=== PATIENT | female | born 1935 | race Asian ===

== ENCOUNTER 2017-12-26 14:51 | Inpatient (IN) | payer OTHER, MEDICAID ==
[2017-12-26 20:46] LABS: ADD MAN DIFF? NO
[2017-12-26 20:49] LABS: BASOPHIL # 0.1 10^3/ul (0.0-0.1); BASOPHILS % 0.8 % (0.0-2.0); EOSINOPHILS # 0.3 10^3/ul (0.0-0.5); HEMATOCRIT 37.1 % (37.0-47.0); HEMOGLOBIN 12.2 g/dl (12.0-16.0); LYMPHOCYTES # 3.9 10^3/ul (0.8-2.9); LYMPHOCYTES % 36.1 % (15.0-51.0); MEAN CORPUSCULAR HEMOGLOBIN 30.7 pg (29.0-33.0); MEAN CORPUSCULAR HGB CONC 32.9 g/dl (32.0-37.0); MEAN CORPUSCULAR VOLUME 93.2 fl (82.0-101.0); MEAN PLATELET VOLUME 12.1 fl (7.4-10.4); MONOCYTE # 1.4 10^3/ul (0.3-0.9); NEUTROPHILS % 46.6 % (39.0-77.0); PLATELET COUNT 152 10^3/UL (140-415); RED BLOOD COUNT 3.98 10^6/ul (4.20-5.40); RED CELL DISTRIBUTION WIDTH 13.1 % (11.5-14.5)
[2017-12-26 20:49] LABS: WHITE BLOOD COUNT 10.8 10^3/ul (4.8-10.8)
[2017-12-26 21:06] LABS: ANION GAP 14 (8-16); BLOOD UREA NITROGEN 17 mg/dl (7-20); CALCIUM 9.3 mg/dl (8.4-10.2); CARBON DIOXIDE 27 mmol/L (21-31); CHLORIDE 105 mmol/L (97-110); CREATININE 0.95 mg/dl (0.44-1.00); GLUCOSE 141 mg/dl (70-220); POTASSIUM 4.6 mmol/L (3.5-5.1); SODIUM 141 mmol/L (135-144)
[2017-12-26 21:09] LABS: URINE BLOOD (Dip) POC Trace-intact (NEGATIVE); URINE GLUCOSE (Dip) POC Negative (NEGATIVE); URINE KETONES (Dip) POC Negative (NEGATIVE); URINE LEUKOCYTE EST (Dip) POC Negative (NEGATIVE); URINE NITRITE (Dip) POC Negative (NEGATIVE); URINE TOTAL PROTEIN POC 1+ (NEGATIVE)
[2017-12-26 21:09] LABS: URINE PH (Dip) POC 5.5 (5.0-8.5)
[2017-12-26 21:18] LABS: B-TYPE NATRIURETIC PEPTIDE 820 PG/ML (0-450)
[2017-12-26 21:28] LABS: TROPONIN-I < 0.012 ng/ml (0.00-0.12)
[2017-12-26] MEDS: ASPIRIN 81 MG TAB PO (23:15)
[2017-12-26] MEDS: SOD CHLORIDE 0.9% 1,000 ML IV (23:56)
[2017-12-27] MEDS ORDERED: DOCUSATE SODIUM 100 MG CAP PO ×2
[2017-12-27] MEDS ORDERED: NACL 0.9% 3 ML SYG IV
[2017-12-27] MEDS ORDERED: ONDANSETRON 4 MG INJ IV
[2017-12-27] MEDS ORDERED: ONDANSETRON 4 MG TAB PO
[2017-12-27] MEDS ORDERED: morphine 2 MG INJ IV
[2017-12-27] MEDS ORDERED: ALENDRONATE SODIUM 70 MG XX
[2017-12-27] MEDS ORDERED: MECLIZINE 25 MG TAB PO
[2017-12-27] MEDS ORDERED: BISACODYL (EC) 5 MG TAB PO
[2017-12-27] MEDS ORDERED: NITROGLYCERIN (SL) 0.4 MG TAB SL
[2017-12-27] MEDS: KETOROLAC 15 MG INJ IV (04:14)
[2017-12-27 06:35] LABS: ADD MAN DIFF? NO
[2017-12-27 06:38] LABS: WHITE BLOOD COUNT 7.5 10^3/ul (4.8-10.8)
[2017-12-27 06:38] LABS: BASOPHIL # 0.1 10^3/ul (0.0-0.1); BASOPHILS % 0.9 % (0.0-2.0); EOSINOPHILS # 0.3 10^3/ul (0.0-0.5); HEMATOCRIT 34.9 % (37.0-47.0); HEMOGLOBIN 11.8 g/dl (12.0-16.0); LYMPHOCYTES # 2.8 10^3/ul (0.8-2.9); LYMPHOCYTES % 37.3 % (15.0-51.0); MEAN CORPUSCULAR HEMOGLOBIN 31.5 pg (29.0-33.0); MEAN CORPUSCULAR HGB CONC 33.8 g/dl (32.0-37.0); MEAN CORPUSCULAR VOLUME 93.1 fl (82.0-101.0); MEAN PLATELET VOLUME 12.5 fl (7.4-10.4); MONOCYTE # 1.1 10^3/ul (0.3-0.9); MONOCYTES % 14.9 % (0.0-11.0); NEUTROPHIL # 3.2 10^3/ul (1.6-7.5); NEUTROPHILS % 42.6 % (39.0-77.0); PLATELET COUNT 132 10^3/UL (140-415); RED BLOOD COUNT 3.75 10^6/ul (4.20-5.40); RED CELL DISTRIBUTION WIDTH 13.2 % (11.5-14.5)
[2017-12-27 07:04] LABS: HEMOGLOBIN A1C 6.2 % (0-5.9)
[2017-12-27 07:05] LABS: ALANINE AMINOTRANSFERASE 40 IU/L (13-69); ALBUMIN 3.1 g/dl (3.3-4.9); ALBUMIN/GLOBULIN RATIO 1.29; ALKALINE PHOSPHATASE 59 IU/L (42-121); ANION GAP 13 (8-16); ASPARTATE AMINO TRANSFERASE 27 IU/L (15-46); BILIRUBIN,INDIRECT 0.6 mg/dl (0-1.1); BILIRUBIN,TOTAL 0.6 mg/dl (0.2-1.3); BLOOD UREA NITROGEN 14 mg/dl (7-20); CALCIUM 9.3 mg/dl (8.4-10.2); CARBON DIOXIDE 27 mmol/L (21-31); CHLORIDE 107 mmol/L (97-110); CHOL/HDL RATIO 2.3 RATIO; CHOLESTEROL 104 mg/dl (100-200); GLUCOSE 114 mg/dl (70-220); HDL CHOLESTEROL 45 mg/dl (33-92); LDL CHOLESTEROL,CALCULATED 38 mg/dl; POTASSIUM 4.3 mmol/L (3.5-5.1); SODIUM 143 mmol/L (135-144); TOTAL PROTEIN 5.5 g/dl (6.1-8.1); TRIGLYCERIDES 103 mg/dl (0-149)
[2017-12-27 07:06] LABS: CREATINE KINASE 57 IU/L (23-200)
[2017-12-27 07:09] LABS: CK INDEX 1.6; CK-MB 0.94 ng/ml (0.0-2.4)
[2017-12-27 07:12] LABS: TROPONIN-I < 0.012 ng/ml (0.00-0.12)
[2017-12-27] MEDS: ASPIRIN (EC) 81 MG TAB PO (08:26)
[2017-12-27] MEDS: PROPRANOLOL 10 MG TAB PO ×3 (08:26→20:04)
[2017-12-27] MEDS: BENAZEPRIL 20 MG TAB PO (08:27)
[2017-12-27] MEDS: FAMOTIDINE 20 MG TAB PO (08:30)
[2017-12-27 13:10] LABS: CREATINE KINASE 61 IU/L (23-200)
[2017-12-27 13:15] LABS: CK INDEX 1.6
[2017-12-27 13:21] LABS: CK-MB 0.95 ng/ml (0.0-2.4); TROPONIN-I < 0.012 ng/ml (0.00-0.12)
[2017-12-27] MEDS ORDERED: GLUCOSE GEL 15 GRAM TUBE BUCCAL (13:30)
[2017-12-27] MEDS ORDERED: GLUCOSE GEL 15 GRAM TUBE PO ×2 (13:30)
[2017-12-27] MEDS ORDERED: DEXTROSE 50% 50 ML SYRINGE IV ×2 (13:30)
[2017-12-27] MEDS ORDERED: GLUCAGON 1 MG INJ IM (13:30)
[2017-12-27] MEDS: INSULIN ASPART [NOVOLOG] 3 ML PEN SC ×2 (19:17→20:21)
[2017-12-27] MEDS: ATORVASTATIN 40 MG TAB PO (20:03)
[2017-12-27] MEDS: SOD CHLORIDE 0.9% 1,000 ML IV (20:04)
[2017-12-28] MEDS: ACCU-CHEK XX (02:00)
[2017-12-28] MEDS: SOD CHLORIDE 0.9% 1,000 ML IV (05:37)
[2017-12-28] MEDS: INSULIN ASPART [NOVOLOG] 3 ML PEN SC ×4 (07:55→20:36)
[2017-12-28] MEDS: ASPIRIN (EC) 81 MG TAB PO (08:31)
[2017-12-28] MEDS: BENAZEPRIL 20 MG TAB PO (08:32)
[2017-12-28] MEDS: PROPRANOLOL 10 MG TAB PO ×3 (08:33→20:18)
[2017-12-28] MEDS: FAMOTIDINE 20 MG TAB PO (08:33)
[2017-12-28] MEDS: FUROSEMIDE 20 MG INJ IV (12:27)
[2017-12-28] MEDS: ACETAMINOPHEN 325 MG TAB PO ×2 (12:30→20:31)
[2017-12-28] MEDS ORDERED: MENTHOL/METH SALICYLATE 30 GM OINT TOP (13:00)
[2017-12-28] MEDS: ATORVASTATIN 40 MG TAB PO (20:15)
[2017-12-29] MEDS: ACCU-CHEK XX (02:35)
[2017-12-29] MEDS: INSULIN ASPART [NOVOLOG] 3 ML PEN SC ×4 (07:55→20:24)
[2017-12-29] MEDS: ACETAMINOPHEN 325 MG TAB PO (07:57)
[2017-12-29] MEDS: PROPRANOLOL 10 MG TAB PO (09:00)
[2017-12-29] MEDS: FAMOTIDINE 20 MG TAB PO (09:23)
[2017-12-29] MEDS: BENAZEPRIL 20 MG TAB PO (09:23)
[2017-12-29] MEDS: FUROSEMIDE 20 MG INJ IV ×2 (09:23→17:52)
[2017-12-29] MEDS: MENTHOL/METH SALICYLATE 30 GM OINT TOP ×3 (12:25→20:27)
[2017-12-29] MEDS: metFORMIN 500 MG TAB PO ×2 (12:25→20:23)
[2017-12-29] MEDS: GABAPENTIN 100 MG CAP PO ×2 (12:26→20:23)
[2017-12-29 12:34] LABS: ALBUMIN 3.3 g/dl (3.3-4.9); ANION GAP 13 (8-16); BLOOD UREA NITROGEN 12 mg/dl (7-20); CALCIUM 8.8 mg/dl (8.4-10.2); CARBON DIOXIDE 32 mmol/L (21-31); CHLORIDE 107 mmol/L (97-110); CREATININE 0.78 mg/dl (0.44-1.00); GLUCOSE 190 mg/dl (70-220); PHOSPHORUS 3.4 mg/dl (2.5-4.9); POTASSIUM 4.7 mmol/L (3.5-5.1); SODIUM 147 mmol/L (135-144)
[2017-12-29] MEDS ORDERED: PROPRANOLOL 10 MG TAB PO (13:00)
[2017-12-29] MEDS: OLOPATADINE 0.1% 5 ML OPH BOTH EYES ×2 (13:49→20:29)
[2017-12-29] MEDS: ALBUTEROL 0.083% (NEB) 2.5 MG/3 ML AMP HHN ×2 (14:06→20:45)
[2017-12-29] MEDS: ATORVASTATIN 40 MG TAB PO (20:23)
[2017-12-29] MEDS: METOPROLOL 25 MG TAB PO (20:23)
[2017-12-30] MEDS: ACCU-CHEK XX (02:00)
[2017-12-30] MEDS: FUROSEMIDE 20 MG INJ IV ×2 (05:21→18:07)
[2017-12-30] MEDS: INSULIN ASPART [NOVOLOG] 3 ML PEN SC (07:55)
[2017-12-30] MEDS: ALBUTEROL 0.083% (NEB) 2.5 MG/3 ML AMP HHN ×3 (08:09→20:23)
[2017-12-30] MEDS: BENAZEPRIL 20 MG TAB PO (09:00)
[2017-12-30] MEDS: METOPROLOL 25 MG TAB PO ×2 (09:00→21:00)
[2017-12-30] MEDS: GABAPENTIN 100 MG CAP PO ×2 (09:39→20:45)
[2017-12-30] MEDS: FAMOTIDINE 20 MG TAB PO (09:39)
[2017-12-30] MEDS: OLOPATADINE 0.1% 5 ML OPH BOTH EYES ×2 (09:39→20:44)
[2017-12-30] MEDS: metFORMIN 500 MG TAB PO ×2 (09:40→20:45)
[2017-12-30] MEDS: MENTHOL/METH SALICYLATE 30 GM OINT TOP ×3 (09:40→20:45)
[2017-12-30] MEDS: ATORVASTATIN 40 MG TAB PO (20:44)
[2017-12-31] MEDS: METOPROLOL 25 MG TAB PO ×2 (01:44→08:27)
[2017-12-31] MEDS: FUROSEMIDE 20 MG INJ IV (05:41)
[2017-12-31] MEDS: ALBUTEROL 0.083% (NEB) 2.5 MG/3 ML AMP HHN ×3 (07:25→19:48)
[2017-12-31] MEDS: metFORMIN 500 MG TAB PO ×2 (08:26→20:20)
[2017-12-31] MEDS: BENAZEPRIL 20 MG TAB PO (08:28)
[2017-12-31] MEDS: FAMOTIDINE 20 MG TAB PO (08:29)
[2017-12-31] MEDS: MENTHOL/METH SALICYLATE 30 GM OINT TOP ×3 (08:30→20:20)
[2017-12-31] MEDS: OLOPATADINE 0.1% 5 ML OPH BOTH EYES ×2 (08:30→20:20)
[2017-12-31] MEDS ORDERED: FAMOTIDINE 20 MG TAB PO (10:30)
[2018-01-01 06:50] LABS: ANION GAP 12 (8-16); BLOOD UREA NITROGEN 19 mg/dl (7-20); CARBON DIOXIDE 30 mmol/L (21-31); CHLORIDE 100 mmol/L (97-110); CREATININE 0.85 mg/dl (0.44-1.00); GLUCOSE 115 mg/dl (70-220); MAGNESIUM 1.4 mg/dl (1.7-2.5); PHOSPHORUS 2.9 mg/dl (2.5-4.9); POTASSIUM 3.9 mmol/L (3.5-5.1); SODIUM 138 mmol/L (135-144)
[2018-01-01] MEDS: ALBUTEROL 0.083% (NEB) 2.5 MG/3 ML AMP HHN ×3 (07:53→20:32)
[2018-01-01] MEDS: metFORMIN 500 MG TAB PO ×2 (08:42→21:30)
[2018-01-01] MEDS: FAMOTIDINE 20 MG TAB PO (08:42)
[2018-01-01] MEDS: OLOPATADINE 0.1% 5 ML OPH BOTH EYES ×2 (08:43→21:30)
[2018-01-01] MEDS: MENTHOL/METH SALICYLATE 30 GM OINT TOP ×3 (08:43→21:31)
[2018-01-01] MEDS: BENAZEPRIL 20 MG TAB PO (09:42)
[2018-01-01] MEDS: FUROSEMIDE 40 MG TAB PO (09:42)
[2018-01-01] MEDS: ACETAMINOPHEN 325 MG TAB PO (09:59)
[2018-01-01] MEDS: MAGNESIUM OXIDE 400 MG TAB PO ×2 (10:14→13:16)
[2018-01-01] MEDS: MAGNESIUM SULFATE 4 GM/100 ML 100 ML IVPB (11:07)
[2018-01-02 07:01] LABS: ALBUMIN 3.7 g/dl (3.3-4.9); ANION GAP 14 (8-16); BLOOD UREA NITROGEN 13 mg/dl (7-20); CALCIUM 8.3 mg/dl (8.4-10.2); CARBON DIOXIDE 30 mmol/L (21-31); CHLORIDE 95 mmol/L (97-110); CREATININE 0.84 mg/dl (0.44-1.00); GLUCOSE 117 mg/dl (70-220); MAGNESIUM 1.4 mg/dl (1.7-2.5); PHOSPHORUS 2.8 mg/dl (2.5-4.9); POTASSIUM 4.3 mmol/L (3.5-5.1); SODIUM 135 mmol/L (135-144)
[2018-01-02] MEDS: ALBUTEROL 0.083% (NEB) 2.5 MG/3 ML AMP HHN ×3 (08:06→20:00)
[2018-01-02] MEDS: FAMOTIDINE 20 MG TAB PO (09:18)
[2018-01-02] MEDS: FUROSEMIDE 40 MG TAB PO (09:18)
[2018-01-02] MEDS: BENAZEPRIL 20 MG TAB PO (09:18)
[2018-01-02] MEDS: metFORMIN 500 MG TAB PO ×2 (09:19→22:29)
[2018-01-02] MEDS: OLOPATADINE 0.1% 5 ML OPH BOTH EYES ×2 (09:19→22:28)
[2018-01-02] MEDS: MENTHOL/METH SALICYLATE 30 GM OINT TOP ×3 (09:20→22:30)
[2018-01-02] MEDS: ACETAMINOPHEN 325 MG TAB PO (09:22)
[2018-01-02] MEDS: MAGNESIUM SULFATE 4 GM/100 ML 100 ML IVPB (14:20)
[2018-01-02] MEDS ORDERED: SODIUM CL BACTERIOSTATIC 30 ML INJ (18:30)
[2018-01-02] MEDS: POLYMYXIN/BACITRACIN 1L IRRIG (19:33)
[2018-01-02] MEDS: LIDOCAINE 1% (MPF) 30 ML INJ (19:34)
[2018-01-02] MEDS: MINERAL OIL LIGHT 10 ML VIAL (19:34)
[2018-01-02] MEDS ORDERED: FENTAnyl 50 MCG/ML VIAL IV ×2 (20:30)
[2018-01-02] MEDS ORDERED: ONDANSETRON 4 MG INJ IV (20:30)
[2018-01-02] MEDS ORDERED: DIPHENHYDRAMINE 50 MG INJ IV (20:30)
[2018-01-02] MEDS ORDERED: LABETALOL HCL 20MG INJ IV (20:30)
[2018-01-02] MEDS ORDERED: HYDROmorphONE (0.2 MG/ML) 10ML SYG IV (20:30)
[2018-01-02] MEDS ORDERED: EPHEDrine SULFATE 50 MG/5 ML SYG IV (20:30)
[2018-01-02] MEDS ORDERED: hydrALAzine 20 MG INJ IV (20:30)
[2018-01-02] MEDS ORDERED: FENTAnyl 50 MCG/ML VIAL (20:51)
[2018-01-02] MEDS: IOHEXOL 300MG/ML 30 ML BTL (20:57)
[2018-01-02] MEDS ORDERED: METOCLOPRAMIDE 10 MG INJ (21:04)
[2018-01-02] MEDS ORDERED: ONDANSETRON 4 MG INJ (21:04)
[2018-01-02] MEDS ORDERED: CEFAZOLIN 1 GM INJ (21:04)
[2018-01-02] MEDS ORDERED: PROPOFOL 20 ML (21:04)
[2018-01-02] MEDS ORDERED: DEXAMETHASONE 4 MG/ML 1 ML INJ (21:04)
[2018-01-02] MEDS: CEFAZOLIN 1 GM/50 ML (PMX) 50 ML IVPB (22:00)
[2018-01-03] MEDS: CEFAZOLIN 1 GM/50 ML (PMX) 50 ML IVPB ×2 (05:09→13:51)
[2018-01-03] MEDS: ALBUTEROL 0.083% (NEB) 2.5 MG/3 ML AMP HHN ×3 (08:43→19:45)
[2018-01-03] MEDS: metFORMIN 500 MG TAB PO ×2 (09:05→20:44)
[2018-01-03] MEDS: FAMOTIDINE 20 MG TAB PO (09:05)
[2018-01-03] MEDS: OLOPATADINE 0.1% 5 ML OPH BOTH EYES ×2 (09:06→20:45)
[2018-01-03] MEDS: FUROSEMIDE 40 MG TAB PO (09:06)
[2018-01-03] MEDS: MENTHOL/METH SALICYLATE 30 GM OINT TOP ×3 (09:06→20:45)
[2018-01-03] MEDS: BENAZEPRIL 20 MG TAB PO (09:06)
[2018-01-03] MEDS: ALENDRONATE 70 MG TAB PO (09:06)
[2018-01-03 09:07] LABS: ALBUMIN 3.8 g/dl (3.3-4.9); ANION GAP 13 (8-16); BLOOD UREA NITROGEN 20 mg/dl (7-20); CALCIUM 8.3 mg/dl (8.4-10.2); CARBON DIOXIDE 31 mmol/L (21-31); CHLORIDE 95 mmol/L (97-110); GLUCOSE 166 mg/dl (70-220); PHOSPHORUS 3.3 mg/dl (2.5-4.9); POTASSIUM 4.8 mmol/L (3.5-5.1); SODIUM 134 mmol/L (135-144)
[2018-01-03] MEDS: APIXABAN 5 MG TABLET PO (20:43)
[2018-01-03] MEDS: METOPROLOL 25 MG TAB PO (20:44)
[2018-01-04] MEDS: ALBUTEROL/IPRATROPIUM (NEB) 3 ML AMP HHN (06:22)
[2018-01-04] MEDS: ACETAMINOPHEN 325 MG TAB PO (06:33)
[2018-01-04] MEDS: ALBUTEROL 0.083% (NEB) 2.5 MG/3 ML AMP HHN ×2 (07:47→13:10)
[2018-01-04] MEDS: OLOPATADINE 0.1% 5 ML OPH BOTH EYES (09:06)
[2018-01-04] MEDS: FUROSEMIDE 40 MG TAB PO (09:06)
[2018-01-04] MEDS: APIXABAN 5 MG TABLET PO (09:06)
[2018-01-04] MEDS: metFORMIN 500 MG TAB PO (09:06)
[2018-01-04] MEDS: FAMOTIDINE 20 MG TAB PO (09:06)
[2018-01-04] MEDS: BENAZEPRIL 20 MG TAB PO (09:07)
[2018-01-04] MEDS: MENTHOL/METH SALICYLATE 30 GM OINT TOP ×2 (09:08→13:00)
[2018-01-04] MEDS: METOPROLOL 25 MG TAB PO (09:08)
== END 2018-01-04 16:50 | disposition home health service (06) | DRG 244 ==
LOC: TEL 23:21 → E/R 14:51 → TEL 12-27 17:48
PROC: 0JH606Z Insertion of Pacemaker, Dual Chamber into Chest Subcutaneous Tissue and Fascia, Open Approach (ICD-10-PCS; principal; 2018-01-02 20:00)
PROC: 02H63JZ Insertion of Pacemaker Lead into Right Atrium, Percutaneous Approach (ICD-10-PCS; 2018-01-02 20:00)
PROC: 02HK3JZ Insertion of Pacemaker Lead into Right Ventricle, Percutaneous Approach (ICD-10-PCS; 2018-01-02 20:00)
DX: I11.0 Hypertensive heart disease with heart failure (principal); I50.33 Acute on chronic diastolic (congestive) heart failure; I49.5 Sick sinus syndrome; I48.0 Paroxysmal atrial fibrillation; E83.42 Hypomagnesemia; F41.9 Anxiety disorder, unspecified; E11.9 Type 2 diabetes mellitus without complications; R07.89 Other chest pain; M81.0 Age-related osteoporosis without current pathological fracture; M54.5 Low back pain; R42 Dizziness and giddiness; E78.5 Hyperlipidemia, unspecified; Z79.4 Long term (current) use of insulin
CPT/HCPCS: 36415; 71045; 80048; 80053; 80061; 80069; 81003; 82550; 82553; 82962; 83036; 83735; 83880; 84443; 84484; 85025; 93005; 93306; 94640; 94664; 97161; 97165; 99285-25

== ENCOUNTER 2018-04-10 11:56 | Observation (INO) | payer MEDICARE, OTHER, MEDICAID ==
[2018-04-10 12:56] LABS: ADD MAN DIFF? NO
[2018-04-10 12:59] LABS: WHITE BLOOD COUNT 6.8 10^3/ul (4.8-10.8)
[2018-04-10 12:59] LABS: BASOPHIL # 0.1 10^3/ul (0.0-0.1); EOSINOPHILS # 0.2 10^3/ul (0.0-0.5); EOSINOPHILS % 2.9 % (0.0-7.0); HEMATOCRIT 34.7 % (37.0-47.0); HEMOGLOBIN 11.7 g/dl (12.0-16.0); LYMPHOCYTES # 2.3 10^3/ul (0.8-2.9); LYMPHOCYTES % 33.8 % (15.0-51.0); MEAN CORPUSCULAR HEMOGLOBIN 31.3 pg (29.0-33.0); MEAN CORPUSCULAR HGB CONC 33.7 g/dl (32.0-37.0); MEAN CORPUSCULAR VOLUME 92.8 fl (82.0-101.0); MEAN PLATELET VOLUME 12.2 fl (7.4-10.4); MONOCYTES % 14.9 % (0.0-11.0); NEUTROPHIL # 3.2 10^3/ul (1.6-7.5); NEUTROPHILS % 47.3 % (39.0-77.0); PLATELET COUNT 170 10^3/UL (140-415); RED BLOOD COUNT 3.74 10^6/ul (4.20-5.40); RED CELL DISTRIBUTION WIDTH 13.2 % (11.5-14.5)
[2018-04-10 13:17] LABS: MAGNESIUM 1.7 mg/dl (1.7-2.5)
[2018-04-10 13:27] LABS: B-TYPE NATRIURETIC PEPTIDE 275 PG/ML (0-450)
[2018-04-10 13:54] LABS: ANION GAP 14 (8-16); BLOOD UREA NITROGEN 16 mg/dl (7-20); CALCIUM 9.1 mg/dl (8.4-10.2); CARBON DIOXIDE 28 mmol/L (21-31); CHLORIDE 103 mmol/L (97-110); GLUCOSE 169 mg/dl (70-220); POTASSIUM 3.8 mmol/L (3.5-5.1); SODIUM 141 mmol/L (135-144)
[2018-04-10] MEDS: NITROGLYCERIN 2% 1 GM OINT PKT TD (14:03)
[2018-04-10 14:06] LABS: TROPONIN-I < 0.010 ng/ml (0.000-0.120)
[2018-04-10] MEDS: ASPIRIN 81 MG TAB PO (14:07)
[2018-04-10] MEDS ORDERED: ONDANSETRON 4 MG INJ IV (17:00)
[2018-04-10] MEDS ORDERED: DOCUSATE SODIUM 100 MG CAP PO (17:00)
[2018-04-10] MEDS ORDERED: NACL 0.9% 3 ML SYG IV (17:00)
[2018-04-10] MEDS ORDERED: HYDROCODONE/APAP (5/325) TAB PO (17:00)
[2018-04-10] MEDS ORDERED: NITROGLYCERIN (SL) 0.4 MG TAB SL (17:00)
[2018-04-10] MEDS ORDERED: ZOLPIDEM 5 MG TAB PO (17:00)
[2018-04-10] MEDS ORDERED: morphine 2 MG INJ IV (17:00)
[2018-04-10] MEDS ORDERED: MAGNESIUM HYDROXIDE 30ML CUP PO (17:00)
[2018-04-10] MEDS ORDERED: GLUCOSE GEL 15 GRAM TUBE PO ×2 (17:30)
[2018-04-10] MEDS ORDERED: GLUCOSE GEL 15 GRAM TUBE BUCCAL (17:30)
[2018-04-10] MEDS ORDERED: DEXTROSE 50% 50 ML SYRINGE IV ×2 (17:30)
[2018-04-10] MEDS ORDERED: GLUCAGON 1 MG INJ IM (17:30)
[2018-04-10] MEDS: LINAGLIPTIN 5 MG TABLET PO (17:30)
[2018-04-10 18:17] LABS: CREATINE KINASE 108 IU/L (23-200)
[2018-04-10 18:30] LABS: CK INDEX 0.7; CK-MB 0.74 ng/ml (0.0-2.4); TROPONIN-I < 0.010 ng/ml (0.000-0.120)
[2018-04-10] MEDS: METOPROLOL (XL) 25 MG TAB PO (20:49)
[2018-04-10] MEDS: FUROSEMIDE 40 MG TAB PO (20:49)
[2018-04-10] MEDS: ATORVASTATIN 40 MG TAB PO (20:49)
[2018-04-10] MEDS: OLOPATADINE 0.1% 5 ML OPH BOTH EYES (21:00)
[2018-04-11 01:27] LABS: CREATINE KINASE 92 IU/L (23-200)
[2018-04-11 01:41] LABS: CK INDEX 0.7; CK-MB 0.61 ng/ml (0.0-2.4); TROPONIN-I < 0.010 ng/ml (0.000-0.120)
[2018-04-11] MEDS: ACETAMINOPHEN 325 MG TAB PO (06:43)
[2018-04-11 07:44] LABS: ADD MAN DIFF? NO
[2018-04-11 07:50] LABS: WHITE BLOOD COUNT 7.3 10^3/ul (4.8-10.8)
[2018-04-11 07:50] LABS: BASOPHIL # 0.1 10^3/ul (0.0-0.1); EOSINOPHILS # 0.2 10^3/ul (0.0-0.5); HEMATOCRIT 32.6 % (37.0-47.0); LYMPHOCYTES # 2.3 10^3/ul (0.8-2.9); LYMPHOCYTES % 31.1 % (15.0-51.0); MEAN CORPUSCULAR HEMOGLOBIN 31.3 pg (29.0-33.0); MEAN CORPUSCULAR HGB CONC 33.7 g/dl (32.0-37.0); MEAN CORPUSCULAR VOLUME 92.9 fl (82.0-101.0); MEAN PLATELET VOLUME 12.2 fl (7.4-10.4); MONOCYTE # 1.1 10^3/ul (0.3-0.9); MONOCYTES % 14.4 % (0.0-11.0); NEUTROPHIL # 3.7 10^3/ul (1.6-7.5); NEUTROPHILS % 50.2 % (39.0-77.0); PLATELET COUNT 167 10^3/UL (140-415); RED BLOOD COUNT 3.51 10^6/ul (4.20-5.40); RED CELL DISTRIBUTION WIDTH 13.3 % (11.5-14.5)
[2018-04-11] MEDS: metFORMIN 500 MG TAB PO (08:10)
[2018-04-11] MEDS: FUROSEMIDE 40 MG TAB PO (08:11)
[2018-04-11] MEDS: METOPROLOL (XL) 25 MG TAB PO (08:11)
[2018-04-11] MEDS: LINAGLIPTIN 5 MG TABLET PO (08:11)
[2018-04-11] MEDS: BENAZEPRIL 20 MG TAB PO (08:12)
[2018-04-11] MEDS: APIXABAN 5 MG TABLET PO (08:12)
[2018-04-11 08:43] LABS: HEMOGLOBIN A1C 5.9 % (0-5.9)
[2018-04-11 08:47] LABS: ANION GAP 13 (8-16); BLOOD UREA NITROGEN 17 mg/dl (7-20); CARBON DIOXIDE 30 mmol/L (21-31); CHLORIDE 103 mmol/L (97-110); CREATININE 0.93 mg/dl (0.44-1.00); GLUCOSE 122 mg/dl (70-220); MAGNESIUM 1.7 mg/dl (1.7-2.5); PHOSPHORUS 4.1 mg/dl (2.5-4.9); POTASSIUM 3.9 mmol/L (3.5-5.1); SODIUM 142 mmol/L (135-144)
[2018-04-11] MEDS: OLOPATADINE 0.1% 5 ML OPH BOTH EYES (09:00)
[2018-04-11] MEDS: INSULIN ASPART [NOVOLOG] 3 ML PEN SC (11:45)
[2018-04-11] MEDS ORDERED: FUROSEMIDE 40 MG TAB PO (18:00)
[2018-04-12] MEDS ORDERED: ACCUCHECK AT 2AM (Patients on SS coverage) XX (02:00)
== END 2018-04-11 14:39 | disposition home or self-care (01) ==
LOC: E/R 11:56 → MS4 14:35
PROVIDERS: Internal Medicine
DX: R07.89 Other chest pain (principal); I25.10 Atherosclerotic heart disease of native coronary artery without angina pectoris; I48.0 Paroxysmal atrial fibrillation; E11.9 Type 2 diabetes mellitus without complications; Z79.84 Long term (current) use of oral hypoglycemic drugs; F41.9 Anxiety disorder, unspecified; I50.30 Unspecified diastolic (congestive) heart failure; E78.5 Hyperlipidemia, unspecified; M19.90 Unspecified osteoarthritis, unspecified site; Z79.01 Long term (current) use of anticoagulants
CPT/HCPCS: 36415; 71045; 80048; 82550; 82553; 82962; 83036; 83735; 83880; 84100; 84484; 85025; 93005; 99217; 99285-25; G0378